=== PATIENT | female | born 1990 | race Caucasian/White ===

== ENCOUNTER 2016-07-05 23:25 | Emergency (ER) | payer OTHER ==
[~2016-07-05] VITALS: Ht 160 cm; Wt 61.2 kg
[~2016-07-05 23:25] MED LIST: AUGMENTIN 500 M1 TAB PO; BETAPACE160 MG PO; BIRTH CONTROL PILL PO; DIGOX0.25 MG PO; EES400 MG PO; MAGNESIUM250 M2 PO; MOTRIN CHI100 MG/51 PO; MOTRIN800 MG PO; OMNICEF125 MG/5 M PO; PRENATAL1 TA3 PO; ZITHROMAX Z PA250 MG PO; ZOFRAN ODT4 MG SL; [UNRECOGNIZED DRUG - OTHER]
[2016-07-05 23:31] VITALS: BP 107/63
[2016-07-05 23:54] LABS: BASO % 0.2 % (0.0-1.0); HEMATOCRIT 39.8 % (37.0-47.0); HEMOGLOBIN 13.3 g/dl (12.0-16.0); LYMPH # 0.5 10*3/uL (1.3-4.4); LYMPH % 5.5 % (27.0-41.0); MEAN CELL VOLUME 88.6 fl (81.0-99.0); MEAN CORPUSCULAR HGB 29.6 pg (27.0-31.0); MEAN CORPUSCULAR HGB CONC 33.4 g/dl (33.0-37.0); MEAN PLATELET VOLUME 11.1 fl (9.6-12.3); MONO # 0.6 10*3/uL (0.1-1.0); MONO % 6.4 % (3.0-9.0); NEUT # 7.7 10*3/uL (2.3-7.9); NEUT % 87.6 % (47.0-73.0); PLATELET COUNT AUTOMATED 263 10*3/uL (130-400); RED BLOOD COUNT 4.49 10*6/uL (4.10-5.10); RED CELL DISTRI WIDTH 13.4 % (0-14.5); WHITE BLOOD COUNT 8.7 10*3/uL (4.8-10.8)
[2016-07-06 00:11] LABS: ALBUMIN 3.3 gm/dl (3.1-4.5); ALKALINE PHOSPHATASE 74 U/L (45-117); BILIRUBIN, TOTAL 0.9 mg/dl (0.2-1.0); BUN 12 mg/dl (7-24); CARBON DIOXIDE 23 mmol/L (21-32); CHLORIDE 105 mmol/L (98-107); EST GLOM FILT AFRICAN AMERICAN > 60 ml/min; GLUCOSE 134 mg/dL (65-99); POTASSIUM 3.4 mmol/L (3.5-5.1); SGOT/AST 19 IU/L (3-35); SGPT/ALT 29 U/L (12-78); SODIUM 140 mmol/L (136-145); TOTAL PROTEIN 7.5 gm/dL (6.4-8.2)
[2016-07-06 00:14] LABS: C-REACTIVE PROTEIN 0.73 MG/DL (0-0.3); MAGNESIUM 1.7 mg/dL (1.5-2.1)
[2016-07-06 01:05] LABS: BILIRUBIN NEGATIVE (NEGATIVE); BLOOD 1+ (NEGATIVE); CLARITY CLEAR (CLEAR); COLOR YELLOW (YELLOW); GLUCOSE NEGATIVE (NEGATIVE); KETONE NEGATIVE (NEGATIVE); LEUKO ESTERASE NEGATIVE (NEGATIVE); NITRITE NEGATIVE (NEGATIVE); PROTEIN NEGATIVE (NEGATIVE); SPECIFIC GRAVITY >= 1.030 (1.005-1.030); UROBILINOGEN 0.2 E.U./dl (0.2-1.0)
[2016-07-06 01:13] LABS: EPITHELIAL CELLS 15-20
[2016-07-06 01:14] LABS: BACTERIA TRACE; URINE REFLEX COMMENT YES (NO)
[2016-07-06] MEDS ORDERED: PHENERGAN25 M3 PO (02:45)
== END 2016-07-06 03:10 | disposition home or self-care (01) ==
LOC: ED 23:25
PROVIDERS: Emergency Medicine
DX: R10.84 Generalized abdominal pain (principal); R11.2 Nausea with vomiting, unspecified; Z88.0 Allergy status to penicillin

== ENCOUNTER 2016-11-09 22:20 | Emergency (ER) | payer OTHER ==
[~2016-11-09] VITALS: Ht 160 cm; Wt 62.6 kg
[~2016-11-09 22:20] MED LIST changes: +PHENERGAN25 M3 PO
[2016-11-09 22:23] VITALS: BP 116/69
[2016-11-09] MEDS ORDERED: ZITHROMAX250 MG PO (22:48)
[2016-11-09] MEDS ORDERED: FLONASE ALLERG9.9 ML NS (22:48)
== END 2016-11-09 22:52 | disposition home or self-care (01) ==
LOC: ED 22:20
DX: J01.11 Acute recurrent frontal sinusitis (principal); R51 Headache; Z88.0 Allergy status to penicillin

== ENCOUNTER → 2016-12-18 | Outpatient (CLI) | payer OTHER ==
[~2016-12-18] MED LIST changes: +FLONASE ALLERG9.9 ML NS; +ZITHROMAX250 MG PO
== END | disposition home or self-care (01) ==
LOC: US 17:32
DX: N83.202 Unspecified ovarian cyst, left side (principal); D25.9 Leiomyoma of uterus, unspecified

== ENCOUNTER → 2018-02-08 | Outpatient (CLI) | payer BC, OTHER | END | disposition home or self-care (01) | LOC: US 16:55 | DX: D25.9 Leiomyoma of uterus, unspecified (principal) ==

== ENCOUNTER 2018-07-14 20:47 | Emergency (ER) | payer BC, OTHER ==
[~2018-07-14] VITALS: Ht 160 cm; Wt 65.8 kg
[2018-07-14 20:49] VITALS: BP 145/76
== END 2018-07-14 22:38 | disposition home or self-care (01) ==
LOC: ED 20:47
DX: S52.042A Displaced fracture of coronoid process of left ulna, initial encounter for closed fracture (principal); M25.522 Pain in left elbow; Z88.0 Allergy status to penicillin; W19.XXXA Unspecified fall, initial encounter; Y93.89 Activity, other specified; Y92.89 Other specified places as the place of occurrence of the external cause; Y99.8 Other external cause status

== ENCOUNTER 2018-08-10 15:48 | Emergency (ER) | payer BC ==
[~2018-08-10] VITALS: Ht 160 cm; Wt 65.8 kg
[2018-08-10 15:50] VITALS: BP 137/75
[2018-08-10] MEDS ORDERED: ZITHROMAX250 MG PO (16:00)
[2018-08-10] MEDS ORDERED: ANAPROX DS550 MG PO (16:00)
== END 2018-08-10 16:12 | disposition home or self-care (01) ==
LOC: ED 15:48
DX: H72.92 Unspecified perforation of tympanic membrane, left ear (principal); Z88.0 Allergy status to penicillin

== ENCOUNTER → 2019-05-25 | Outpatient (CLI) | payer BC ==
[~2019-05-25] MED LIST changes: +ANAPROX DS550 MG PO
== END | disposition home or self-care (01) ==
LOC: CARD 09:49
DX: Z86.79 Personal history of other diseases of the circulatory system (principal)

== ENCOUNTER → 2019-08-22 | Outpatient (CLI) | payer BC | END | disposition home or self-care (01) | LOC: US 15:48 | DX: D25.9 Leiomyoma of uterus, unspecified (principal) ==

== ENCOUNTER → 2019-11-13 | Outpatient (CLI) | payer BC ==
[2019-11-13 11:20] LABS: BASO % 0.4 % (0.0-1.0); EOS % 0.5 % (1.0-4.0); HEMATOCRIT 39.9 % (37.0-47.0); LYMPH # 1.5 10*3/uL (1.3-4.4); LYMPH % 20.2 % (27.0-41.0); MEAN CELL VOLUME 91.5 fl (81.0-99.0); MEAN CORPUSCULAR HGB CONC 32.8 g/dl (33.0-37.0); MEAN PLATELET VOLUME 11.3 fl (9.6-12.3); MONO # 0.4 10*3/uL (0.1-1.0); MONO % 5.2 % (3.0-9.0); NEUT # 5.4 10*3/uL (2.3-7.9); NEUT % 73.4 % (47.0-73.0); PLATELET COUNT AUTOMATED 293 10*3/uL (130-400); RED BLOOD COUNT 4.36 10*6/uL (4.10-5.10); RED CELL DISTRI WIDTH 13.6 % (0-14.5); WHITE BLOOD COUNT 7.4 10*3/uL (4.8-10.8)
[2019-11-13 12:10] LABS: B-hCG (QUALITATIVE) NEGATIVE (NEGATIVE)
[2019-11-14 08:10] LABS: LUTEINIZING HORMONE 14.7 mIU/mL (.)
[2019-11-14 09:05] LABS: FOLLICLE STIMULATING HORMONE 4.5 mIU/mL (.)
[2019-11-15 11:09] LABS: TESTOSTERONE FREE, (DIRECT) 0.9 pg/mL (0.0-4.2)
== END | disposition home or self-care (01) ==
LOC: LAB 10:19 → US 10:30
PROVIDERS: Obstetrics & Gynecology
DX: D25.9 Leiomyoma of uterus, unspecified (principal); N93.9 Abnormal uterine and vaginal bleeding, unspecified

== ENCOUNTER → 2020-03-28 | Outpatient (CLI) | payer BC ==
[~2020-03-28] MED LIST changes: +NEPHRONEX-SL T1 EACH PO; +ORTHO TRI-CYCL1 EACH PO
== END | disposition home or self-care (01) ==
LOC: COVID19 00:22
PROVIDERS: ATTEND Obstetrics & Gynecology
DX: Z11.59 Encounter for screening for other viral diseases (principal)

== ENCOUNTER 2020-04-02 06:08 | Inpatient (IN) | payer BC ==
[2020-03-28 14:05] VITALS: BP 117/62
[~2020-04-02] VITALS: Ht 160 cm; Wt 70.3 kg
[2020-04-02] VITALS (9 sets, daily range): BP systolic 99–144; BP diastolic 55–74
--- NOTE | 2020-04-02 10:50 | NUR ---
DR ROGERS OPENED ABDOMEN FOR HYSTERECTOMY
--- NOTE | 2020-04-02 12:30 | NUR ---
PLACED SPECIMEN IN FORMULIN, NO STICKERS AVAILABLE, NOTIFIED LAB
--- NOTE | 2020-04-02 13:45 | NUR ---
Time: 1344 A 29 year old FEMALE admitted to under services of SIL GALLO DO. Pt. arrived via stretcher from [place]. Chief complaint: S/P HYSTERECTOMY . TIO MARTINEZ
--- NOTE | 2020-04-02 16:10 | NUR ---
PATIENT INTRUCTED ON IS USE, GOOD EFFORT. SPO2 100% ON 2 L, PLACED ON ROOM AIR
--- NOTE | 2020-04-02 20:27 | NUR ---
PRN NORCO GIVEN FOR COMPLAINTS OF ABDOMINAL PAIN RATED 8/10. WILL MONITOR FOR EFFECTIVENESS.
--- NOTE | 2020-04-02 21:20 | NUR ---
PT STATES THAT SHE IS STILL HAVING SOME PAIN IN THE ABDOMEN, NOT BAD BEFORE. WILL CONTINUE TO MONITOR, CALL LIGHT WITHIN REACH
--- NOTE | 2020-04-02 23:14 | NUR ---
SPOKE TO PATIENTS MOM ON THE PHONE ABOUT PATIENT CARE
[2020-04-03 00:10] VITALS: BP 109/60
--- NOTE | 2020-04-03 02:32 | NUR ---
24 HR chart check completed.
--- NOTE | 2020-04-03 04:14 | NUR ---
Patient sleeping. Respirations relaxed and easy. CALL LIGHT WITHIN REACH SANIYA ANDERSEN
[2020-04-03 06:37] LABS: BASO % 0.1 % (0.0-1.0); HEMATOCRIT 30.8 % (37.0-47.0); LYMPH # 1.6 10*3/uL (1.3-4.4); LYMPH % 10.8 % (27.0-41.0); MEAN CELL VOLUME 90.3 fl (81.0-99.0); MEAN CORPUSCULAR HGB 29.3 pg (27.0-31.0); MEAN CORPUSCULAR HGB CONC 32.5 g/dl (33.0-37.0); MEAN PLATELET VOLUME 11.3 fl (9.6-12.3); MONO # 1.3 10*3/uL (0.1-1.0); MONO % 9.1 % (3.0-9.0); NEUT # 11.6 10*3/uL (2.3-7.9); NEUT % 79.5 % (47.0-73.0); PLATELET COUNT AUTOMATED 253 10*3/uL (130-400); RED BLOOD COUNT 3.41 10*6/uL (4.10-5.10); RED CELL DISTRI WIDTH 13.2 % (0-14.5); WHITE BLOOD COUNT 14.6 10*3/uL (4.8-10.8)
--- NOTE | 2020-04-03 06:45 | NUR ---
RAHMAN TAKEN OUT AT THIS TIME, PT TOLERATED WELL. 200 URINE WAS IN BAG. CALL LIGHT WITHIN REACH, WILL CONTINUE TO MONITOR
--- NOTE | 2020-04-03 07:49 | NUR ---
HERE TO SEE PATIENT.
[2020-04-03 08:00] VITALS: BP 112/66
[2020-04-03] MEDS ORDERED: HYDROCODONE-AC1 EAC1 PO (08:05)
[2020-04-03] MEDS ORDERED: IBU800 M1 PO (08:05)
--- NOTE | 2020-04-03 09:00 | NUR ---
[employer] Operator in to talk to patient. Patient states lives at home with and children. There are no steps in the home. Physician: yamel hayes Pharmacy: [facility] services: none Patient's level of ADLs: INDEPENDENT Patient has working utilities: all working DME: none Follow-up physician's appointment after d/c: patient states she chooses to make her own follow up doctors appointment Does patient want to access PORTAL?: no Discharge plan discussed with patient, she states she lives at home with her and their twin boys, she is independent in adls and ambulation, works, drives, she states she will return home when discharged and denies any home needs, case management will follow. DANIEL CHAMORRO
--- NOTE | 2020-04-03 11:21 | NUR ---
SCHEDULED TORADOL ADMINISTERED AT THIS TIME. WILL MONITOR EFFECTIVENESS.
--- NOTE | 2020-04-03 14:05 | NUR ---
PT AMBULATING IN HALLWAY. NO VOICED COMPLAINTS. WILL CONTINUE TO MONITOR.
[2020-04-03 16:00] VITALS: BP 118/59
--- NOTE | 2020-04-03 18:33 | NUR ---
PT REQUESTED PO NORCO PER PRN ORDER C/O ABD PAIN. RATES PAIN 8/10. WILL MONITOR EFFECTIVENESS.
[2020-04-03 20:00] VITALS: BP 121/59
--- NOTE | 2020-04-03 21:00 | NUR ---
PT SEEN AND ASSESSED. PT DENIES ANY C/O AT THIS TIME AND STATES HER PAIN IS TOLERABLE AT 4/10. LOWER ABDOMINAL INCISION IS WELL APPROXIMATED WITH STERI STRIPS IN PLACE. NO SIGNS OR SYMPTOMS OF INFECTION AT THIS PRESENT TIME. PT INSTRUCTED ON INFECTION PREVENTION AND WAS INSTRUCTED ON USE OF HER IS, PT WAS ABLE TO RETURN DEMONSTRATION.
[2020-04-04] VITALS: BP 116/56
--- NOTE | 2020-04-04 00:59 | NUR ---
24 HR chart check completed.
--- NOTE | 2020-04-04 02:25 | NUR ---
24 HR chart check completed.
[2020-04-04 08:00] VITALS: BP 125/79
--- NOTE | 2020-04-04 09:15 | NUR ---
Hep Lock discontinued. Site asymptomatic. Pressure applied. Sterile dressing applied. Discharge instructions reviewed with patient/family. Patient receptive and verbalizes understanding. Follow-up care arranged. Written instructions given to patient/family. DEISY WESTON
== END 2020-04-04 09:51 | disposition home or self-care (01) | DRG 742 ==
LOC: SDC 06:08 → 5E 11:20 → SDC 14:00 → 5E 04-04 09:51
PROVIDERS: ADMIT Obstetrics & Gynecology; ATTEND Obstetrics & Gynecology
DX: D25.9 Leiomyoma of uterus, unspecified (principal); D62 Acute posthemorrhagic anemia; N94.10 Unspecified dyspareunia; N93.9 Abnormal uterine and vaginal bleeding, unspecified; N80.9 Endometriosis, unspecified; N73.6 Female pelvic peritoneal adhesions (postinfective); Z88.0 Allergy status to penicillin

== ENCOUNTER 2021-11-27 22:13 | Emergency (ER) | payer BC ==
[~2021-11-27] VITALS: Ht 160 cm; Wt 74.8 kg
[~2021-11-27 22:13] MED LIST changes: +HYDROCODONE-AC1 EAC1 PO; +IBU800 M1 PO
[2021-11-27 22:29] VITALS: BP 128/72
== END 2021-11-27 23:14 | disposition home or self-care (01) ==
LOC: ED 22:13
DX: S70.262A Insect bite (nonvenomous), left hip, initial encounter (principal); Z88.0 Allergy status to penicillin; Z98.890 Other specified postprocedural states; W57.XXXA Bitten or stung by nonvenomous insect and other nonvenomous arthropods, initial encounter; Y93.89 Activity, other specified; Y92.89 Other specified places as the place of occurrence of the external cause; Y99.8 Other external cause status

== ENCOUNTER 2022-04-09 08:49 | Emergency (ER) | payer BC ==
[~2022-04-09] VITALS: Ht 162.5 cm; Wt 74.8 kg
[2022-04-09 08:59] VITALS: BP 116/78
== END 2022-04-09 11:07 | disposition home or self-care (01) ==
LOC: ED 08:49
DX: U07.1 COVID-19 (principal); Z88.1 Allergy status to other antibiotic agents; Z98.890 Other specified postprocedural states

== ENCOUNTER 2024-04-26 08:41 | Emergency (ER) | payer BC ==
[~2024-04-26] VITALS: Ht 162.5 cm; Wt 75.9 kg
[2024-04-26 08:54] VITALS: BP 123/73
[2024-04-26 09:49] LABS: BASO % 0.4 % (0.0-1.0); EOS # 0.1 10*3/uL (0.0-0.4); EOS % 0.7 % (1.0-4.0); HEMATOCRIT 37.3 % (37.0-47.0); LYMPH # 2.1 10*3/uL (1.3-4.4); LYMPH % 24.9 % (27.0-41.0); MEAN CELL VOLUME 92.8 fl (81.0-99.0); MEAN CORPUSCULAR HGB 30.1 pg (27.0-31.0); MEAN CORPUSCULAR HGB CONC 32.4 g/dl (33.0-37.0); MEAN PLATELET VOLUME 11.1 fl (9.6-12.3); MONO # 0.7 10*3/uL (0.1-1.0); MONO % 8.4 % (3.0-9.0); NEUT # 5.5 10*3/uL (2.3-7.9); NEUT % 65.4 % (47.0-73.0); PLATELET COUNT AUTOMATED 269 10*3/uL (130-400); RED BLOOD COUNT 4.02 10*6/uL (4.10-5.10); RED CELL DISTRI WIDTH 13.5 % (0-14.5); WHITE BLOOD COUNT 8.4 10*3/uL (4.8-10.8)
[2024-04-26 10:06] LABS: BILIRUBIN Negative (Negative); BLOOD 3+ (Negative); CLARITY Clear (Clear); COLOR Yellow (Yellow); GLUCOSE Negative (Negative); KETONE Negative (Negative); LEUKO ESTERASE Negative (Negative); NITRITE Negative (Negative); PH 5.5 (4.5-8.0); SPECIFIC GRAVITY 1.025 (1.001-1.030); UROBILINOGEN 0.2 E.U./dl (0.0-1.0)
[2024-04-26 10:07] LABS: BUN 12 mg/dl (9-23); CHLORIDE 108 mmol/L (98-107); POTASSIUM 3.9 mmol/L (3.4-5.1)
[2024-04-26 10:43] LABS: BACTERIA 2+; RBC 21-30 rbc/hpf (0-2)
[2024-04-26 10:44] LABS: MUCOUS 1+
[2024-04-26] MEDS ORDERED: OMNICEF300 MG PO (12:15)
== END 2024-04-26 12:09 | disposition home or self-care (01) ==
LOC: ED 08:41
PROVIDERS: Emergency Medicine
DX: N93.9 Abnormal uterine and vaginal bleeding, unspecified (principal); N39.0 Urinary tract infection, site not specified; Z88.0 Allergy status to penicillin; Z98.890 Other specified postprocedural states; Z90.711 Acquired absence of uterus with remaining cervical stump

== ENCOUNTER → 2025-05-16 | Outpatient (CLI) | payer BC ==
[~2025-05-16] MED LIST changes: +OMNICEF300 MG PO
[2025-05-16 16:43] LABS: BASO # 0.0 10*3/uL (0.0-0.1); BASO % 0.4 % (0.0-1.0); EOS # 0.0 10*3/uL (0.0-0.4); EOS % 0.4 % (1.0-4.0); MEAN CELL VOLUME 92.7 fl (81.0-99.0); MEAN CORPUSCULAR HGB 30.2 pg (27.0-31.0); MEAN PLATELET VOLUME 11.7 fl (9.6-12.3); MONO # 0.5 10*3/uL (0.1-1.0); MONO % 6.5 % (3.0-9.0); NEUT # 4.7 10*3/uL (2.3-7.9); NEUT % 67.7 % (47.0-73.0); NUCLEATED RED BLOOD CELL 0.0 % (0.0-0.0); NUCLEATED RED BLOOD CELL 0.0 10*3/uL (0.0-0.0); PLATELET COUNT AUTOMATED 278 10*3/uL (130-400); RED CELL DISTRI WIDTH 13.4 % (0-14.5)
[2025-05-16 16:58] LABS: BUN 13 mg/dl (9-23); LDL CHOLESTEROL 103 mg/dL (9-159); SGPT/ALT 18 U/L (5-49); VITAMIN D, 25-HYDROXY 47.6 ng/mL (30-100)
== END | disposition home or self-care (01) ==
LOC: RHCWE 14:13
PROVIDERS: ATTEND Nurse Practitioner Family
DX: Z13.220 Encounter for screening for lipoid disorders (principal); Z00.00 Encounter for general adult medical examination without abnormal findings; Z13.29 Encounter for screening for other suspected endocrine disorder; E66.3 Overweight; R53.82 Chronic fatigue, unspecified